=== PATIENT | male | born 1980 | race Caucasian/White ===

== ENCOUNTER 2020-03-25 17:22 | Emergency (ER) | payer OTHER ==
[2020-03-25] MEDS ORDERED: LODINE CAP 300300 MG PO (18:46)
[2020-03-25] MEDS ORDERED: NORFLEX 100 MG100 MG PO (18:46)
== END 2020-03-25 19:55 | disposition home or self-care (01) ==
LOC: ER1 17:22
DX: M54.42 Lumbago with sciatica, left side (principal); G89.29 Other chronic pain
CPT/HCPCS: 96372; 99283; J1100; J1885; J2060